=== PATIENT | female | born 1930 | race Caucasian/White ===

== ENCOUNTER 2017-02-19 00:51 | Emergency (ER) | payer OTHER ==
[~2017-02-19] VITALS: Ht 154.9 cm; Wt 52.4 kg
[~2017-02-19 00:51] MED LIST: ASPI81TA82 PO; LEVO50TA4 PO; LOSA25TA31 PO; METO50CR PO; MIRTA15 PO; RANI150 PO; SIMV20TA PO
[2017-02-19 01:02] VITALS: BP 138/67; PULSE 97; RESP 18; TEMP 98.2; O2SAT 95
[2017-02-19] MEDS ORDERED: SIMV20TA PO (01:24)
[2017-02-19] MEDS ORDERED: MIRTA15 PO (01:24)
[2017-02-19] MEDS ORDERED: METO50TA PO (01:24)
[2017-02-19] MEDS ORDERED: LOSA25TA PO (01:24)
[2017-02-19] MEDS ORDERED: LEVO50TA4 PO (01:24)
[2017-02-19] MEDS ORDERED: RANI150T PO ×2 (01:24)
[2017-02-19] MEDS ORDERED: ASPI81CH CHEW (01:24)
[2017-02-19] MEDS ORDERED: TETANUS/DIPHTHERIA TOXOID ADULT 0.5 ML VIAL IM ONE (01:30)
--- NOTE | 2017-02-19 02:05 | RADRPT ---
EXAM DATE/TIME: 02/19/2017 01:38 [facility] COMPARISON: No previous studies available for comparison. INDICATIONS : Trauma, fall. RADIATION DOSE: 57.45 CTDIvol (mGy) MEDICAL HISTORY : Hypertension. SURGICAL HISTORY : None. ENCOUNTER: Initial ACUITY: 1 day PAIN SCALE: 5/10 LOCATION: cranial TECHNIQUE: Multiple contiguous axial images were obtained of the head. Using automated exposure control and adj ustment of the mA and/or kV according to patient size, radiation dose was kept as low as reasonably a chievable to obtain optimal diagnostic quality images. DICOM format image data is available electro nically for review and comparison. FINDINGS: Mild periventricular white matter hypodensity is potentially chronic ischemic. There is no evidence o f intracranial mass or hemorrhage. There is nothing to suggest acute infarction. Extracranial structu res are grossly unremarkable. CONCLUSION: No acute intracranial injury Cortes Reyna MD on February 19, 2017 at 2:02 Board Certified Radiologist. This report was verified electronically.
--- NOTE | 2017-02-19 02:06 | RADRPT ---
EXAM DATE/TIME: 02/19/2017 01:38 [facility] COMPARISON: No previous studies available for comparison. INDICATIONS : Trauma, fall. RADIATION DOSE: 34.43 CTDIvol (mGy) MEDICAL HISTORY : Hypertension. SURGICAL HISTORY : None. ENCOUNTER: Initial ACUITY: 1 day PAIN SCORE: 5/10 LOCATION: facial TECHNIQUE: Volumetric scanning of the facial bones was performed. Using automated exposure control and adjustme nt of the mA and/or kV according to patient size, radiation dose was kept as low as reasonably achiev able to obtain optimal diagnostic quality images. DICOM format image data is available electronicall y for review and comparison. FINDINGS: ORBITS: The orbital and infraorbital osseous structures are intact. The retroconal structures have a normal configuration. No radiopaque foreign bodies are seen. NASAL BONE: The nasal bone and maxillary spine are intact ZYGOMATIC ARCHES: Symmetric without evidence of fracture. SINUSES: The maxillary, ethmoid and frontal sinuses are intact. No air-fluid levels seen. NASAL CAVITY: The nasal septum is intact minimally deviated. The lacrimal ducts are intact. SOFT TISSUES: No radiopaque foreign bodies seen. No soft-tissue swelling is seen. INTRACRANIAL: No intracranial air seen. CRIBIFORM PLATE: Grossly intact. CONCLUSION: No evidence of facial fracture Cortes Reyna MD on February 19, 2017 at 2:03 Board Certified Radiologist. This report was verified electronically.
--- NOTE | 2017-02-19 02:34 | PD ---
HPI Chief Complaint: Fall Time Seen by Provider: 01:26 Travel History International Travel<30 days: No Contact w/Intl Traveler<30days: No Traveled to known affect area: No History of Present Illness HPI 86-year-old female presents to the emergency department by private transportation in the care of her daughter for injury sustained 30 minutes prior to arrival to the emergency department. Patient states she was getting up off of the toilet with a persistent device and tripped she thinks on the leg of the portable toilet seat and lost her balance and falling against the wall hitting the left side of her face and head. Patient states she did not lose consciousness but does have pain in the left temporoparietal area as well as left face. Patient has noted marked swelling to the left cheek with superficial abrasions. Patient caught her fall with her left upper extremity and sustained multiple bruises to the left upper extremity denies any pain or deformity to the left upper extremity demonstrates intact range of motion at the shoulder elbow wrist and hand. Patient is a fracture of the left shift with chronic deformity and states this is not a new finding. Patient has no chest wall injury rib pain shortness of breath neck pain back pain pelvic pain or lower extremity numbness tingling weakness or pain or right upper extremity numbness tingling or pain. Patient takes aspirin daily. Patient is nonsmoker. Patient is not diabetic. Patient does not know her tetanus status. Patient also denies any visual disturbance or ear pain. Patient rates her discomfort 0 10 in intensity at this time. The upper extremity or lower extremity numbness tingling or weakness. PFSH Past Medical History Narrative Medical Hypertension, dyslipidemia, pacemaker, hypothyroidism, no tobacco use, nursing notes reviewed Cancer: No Cardiovascular Problems: Yes Endocrine: No Genitourinary: No Hypertension: Yes Immune Disorder: No Implanted Vascular Access Dvce: Yes Musculoskeletal: No Neurologic: No Psychiatric: No Reproductive: No Respiratory: No Tetanus Vaccination: Unknown Influenza Vaccination: No ?: Not Past Surgical History Abdominal Surgery: No AICD: Yes Cardiac Surgery: Yes (PACE MAKER) Ear Surgery: No Endocrine Surgery: No Eye Surgery: No Genitourinary Surgery: No Gynecologic Surgery: No Hysterectomy: Yes Oral Surgery: No Pacemaker: Yes Thoracic Surgery: No Other Surgery: Yes Social History Alcohol Use: No Tobacco Use: No Substance Use: No Allergies-Medications (Allergen,Severity, Reaction): Coded Allergies: indomethacin (Unverified Allergy, Unknown, 02/19/17) Reported Meds & Prescriptions Reported Meds & Active Scripts Active Reported Mirtazapine 15 Mg Tab 15 Mg PO HS Metoprolol Tartrate 50 Mg Tab 50 Mg PO DAILY Losartan (Losartan Potassium) 25 Mg Tab 25 Mg PO DAILY Aspirin 81 Mg Chew 81 Mg CHEW DAILY Simvastatin 20 Mg Tab 20 Mg PO DAILY Levothyroxine (Levothyroxine Sodium) 50 Mcg Tab 50 Mcg PO DAILY Ranitidine (Ranitidine HCl) 150 Mg Tab 150 Mg PO DAILY Ranitidine (Ranitidine HCl) 150 Mg Tab 150 Mg PO HS Review of Systems Except as stated in HPI: all other systems reviewed are Neg General / Constitutional: No: Fever, Chills Eyes: No: Visual changes HENT: No: Headaches, Neck Stiffness, Neck Pain Cardiovascular: No: Chest Pain or Discomfort Respiratory: No: Shortness of Breath Gastrointestinal: No: Nausea, Vomiting, Abdominal Pain Genitourinary: No: Flank Pain Musculoskeletal: No: Limited ROM, Weakness, Pain Skin: No Rash Neurologic: No: Weakness, Dizziness, Syncope, Focal Abnormalities, Coordination Problem Psychiatric: No: Anxiety Hematologic/Lymphatic: No: Lymph Node Enlargement Physical Exam Narrative GENERAL: Well developed well-nourished elderly female in no acute distress no respiratory distress. SKIN: Warm and dry. Superficial abrasion to the left cheek and ecchymotic changes to the left elbow forearm and dorsum of left hand. HEAD: Atraumatic. Normocephalic. No scalp soft tissue swelling abrasion laceration or bony deformity mild tenderness to palpation of the scalp in the left parietal region. EYES: Pupils equal and round. Extraocular muscles intact. No periorbital rim tenderness or crepitus No scleral icterus. No injection or drainage. ENT: No nasal bleeding or discharge. Mucous membranes pink and moist. Airway is patent. Tympanic membranes without hemotympanum. Soft tissue swelling of the left cheek over the zygoma. NECK: Trachea midline. No JVD. No midline tenderness to direct palpation along the cervical spine no bony step-off no paracervical muscle spasm or tenderness CARDIOVASCULAR: Regular rate and rhythm. Chest wall nontender to palpation. RESPIRATORY: No accessory muscle use. Clear to auscultation. Breath sounds equal bilaterally. GASTROINTESTINAL: Abdomen soft, non-tender, nondistended. Hepatic and splenic margins not palpable. MUSCULOSKELETAL: Extremities without clubbing, cyanosis, or edema. No obvious deformities. Left upper extremity demonstrates full range of motion at shoulder or elbow wrist and hand chronic deformity of left wrist noted per patient from prior wrist fracture not a new finding according to the patient. Radial ulnar pulses 2+ to palpation. Gravure Press Operator strength 5 over 5. Capillary refill brisk and less than 2 seconds per digit. Sensory exam intact. NEUROLOGICAL: Awake and alert. No obvious cranial nerve deficits. Motor grossly within normal limits. Five out of 5 muscle strength in the arms and legs. Normal speech. PSYCHIATRIC: Appropriate mood and affect; insight and judgment normal. Data Data Last Documented VS Vital Signs Date Time Temp Pulse Resp B/P (MAP) Pulse Ox O2 Delivery O2 Flow Rate FiO2 02/19/17 02:54 77 16 177/74 (108) 95 02/19/17 01:04 Room Air 02/19/17 01:02 98.2 Orders Orders Ice/Cold Pack (02/19/17 01:26) Ct Brain W/O Iv Contrast(Rout) (02/19/17 ) Ct Facial Bones W/O Iv Cont (02/19/17 ) Tetanus/Diphtheria Tox Adult (Tetanus/Di (02/19/17 01:30) Ed Discharge Order (02/19/17 02:34) MDM Medical Decision Making Medical Screen Exam Complete: Yes Emergency Medical Condition: Yes Medical Record Reviewed: Yes Interpretation(s) Last Impressions Maxillofacial CT 02/19/17 0000 Signed Impressions: Service Date/Time: February 01:38 - CONCLUSION: No evidence of facial fracture Cortes Reyna MD Head CT 02/19/17 0000 Signed Impressions: Service Date/Time: February 01:38 - CONCLUSION: No acute intracranial injury Cortes Reyna MD Differential Diagnosis Minor CHI, ICH, facial fracture, contusion, abrasion Narrative Course Ice pack applied, imaging studies ordered, abrasions cleansed, tetanus status updated CT brain noncontrast reveals no acute bony abnormality or intracranial abnormality. CT facial bones reveals soft tissue swelling no bony abnormality. Patient with daughter at bedside informed of imaging results Patient is stable for outpatient management and follow-up with her primary care provider. Diagnosis Primary Impression: Minor closed head injury Additional Impressions: Contusion of face Qualified Codes: S00.83XA - Contusion of other part of head, initial encounter Contusion of left arm Qualified Codes: S40.022A - Contusion of left upper arm, initial encounter Referrals: Primary Care Physician Patient Instructions: General Instructions Additional Instructions: Follow head injury precautions 24 hours Take acetaminophen/Tylenol as needed for pain associated soft tissue swelling Apply ice pack intermittently to areas of soft tissue swelling and bruising physical first 12-24 hours as tolerated Follow-up with her primary care provider Return to the emergency department for any concerns or change in condition Med/Other Pt SpecificInfo: No Change to Meds Disposition: 01 DISCHARGE HOME Condition: Stable Renata Gutierrez MD Feb 19, 2017 02:34
[2017-02-19 02:54] VITALS: BP 177/74
== END 2017-02-19 03:01 | disposition home or self-care (01) ==
LOC: PHED 00:51
DX: S09.8XXA Other specified injuries of head, initial encounter (principal); S00.83XA Contusion of other part of head, initial encounter; S40.022A Contusion of left upper arm, initial encounter; S00.81XA Abrasion of other part of head, initial encounter; I10 Essential (primary) hypertension; E78.5 Hyperlipidemia, unspecified; E03.9 Hypothyroidism, unspecified; W01.198A Fall on same level from slipping, tripping and stumbling with subsequent striking against other object, initial encounter; Y92.002 Bathroom of unspecified non-institutional (private) residence as the place of occurrence of the external cause; Z23 Encounter for immunization; Z95.0 Presence of cardiac pacemaker; Z86.79 Personal history of other diseases of the circulatory system
CPT/HCPCS: 70450; 70486; 90471; 90714